=== PATIENT | female | born 1945 | race Caucasian/White ===

== ENCOUNTER → 2023-10-16 10:59 | Outpatient (REF) | payer MEDICARE, SELFPAY | LOC: RAD 10:59 | PROVIDERS: ATTENDING PHYSICIAN Internal Medicine | DX: M25.551 Pain in right hip (principal) | CPT/HCPCS: 73502; 73552 ==

== ENCOUNTER → 2024-06-04 13:10 | Outpatient (REF) | payer MEDICARE, SELFPAY ==
[2024-06-04 13:30] VITALS: BMI 26.1
[2024-06-04 14:23] LABS: Hematocrit 34.9 % (37.0-47.0); Hemoglobin 11.5 g/dL (12.0-16.0); Mean Corpuscular Hgb 29.3 pg (27.0-31.0); Mean Platelet Volume 10.7 fL (7.4-10.4); Platelet Count 203 10^3/uL (130-400); Red Blood Cell Count 3.92 10^6/uL (4.20-5.40); Red Cell Dist. Width 13.8 % (11.5-14.5); White Blood Cell Count 6.4 10^3/uL (4.8-10.8)
[2024-06-04 16:01] LABS: ALT (SGPT) 20 U/L (0-35); AST (SGOT) 27 U/L (14-36); Albumin 4.4 g/dl (3.5-5.0); Alkaline Phosphatase 49 U/L (38-126); Blood Urea Nitrogen 35 mg/dl (7-17); Calcium 9.8 mg/dl (8.4-10.2); Carbon Dioxide 26 mmol/L (22-30); Chloride 104 mmol/L (98-107); Estimated Creatinine Clearance 28 ml/min; Glucose 112 mg/dl (70-99); Potassium 4.7 mmol/L (3.5-5.1); Sodium 140 mmol/L (135-145); Total Bilirubin 1.3 mg/dl (0.2-1.3); Total Protein 6.9 g/dl (6.3-8.2)
--- NOTE | 2024-06-20 10:16 | PTCARENOTE ---
Maylin in Dr Landaverde's office made aware of Cr 1.6.
[2024-06-20 10:33] VITALS: BMI 26.1
[2024-06-23 08:33] VITALS: BMI 26.1
== END ==
LOC: REG 13:10
PROVIDERS: ATTENDING PHYSICIAN Orthopaedic Surgery; FAMILY PHYSICIAN Internal Medicine; REFERRING PHYSICIAN Internal Medicine Cardiovascular Disease
DX: M17.12 Unilateral primary osteoarthritis, left knee (principal); Z01.818 Encounter for other preprocedural examination
CPT/HCPCS: 36415; 80053; 83036; 85027; 86850; 86900; 86901; 87070

== ENCOUNTER 2024-07-21 13:05 | Outpatient (RCR) | payer MEDICARE, SELFPAY | END 2024-07-21 23:59 | disposition home or self-care (01) | LOC: RPT 13:05 | PROVIDERS: ATTENDING PHYSICIAN Orthopaedic Surgery; FAMILY PHYSICIAN Internal Medicine | DX: M17.12 Unilateral primary osteoarthritis, left knee (principal); Z73.6 Limitation of activities due to disability; M62.81 Muscle weakness (generalized) | CPT/HCPCS: 97110; 97162 ==

== ENCOUNTER 2024-08-06 11:52 | Outpatient (RCR) | payer MEDICARE, SELFPAY | END 2024-08-06 23:59 | disposition home or self-care (01) | LOC: RPT 11:52 | PROVIDERS: ATTENDING PHYSICIAN Orthopaedic Surgery; FAMILY PHYSICIAN Internal Medicine | DX: M17.12 Unilateral primary osteoarthritis, left knee (principal); Z73.6 Limitation of activities due to disability; M62.81 Muscle weakness (generalized); R26.89 Other abnormalities of gait and mobility | CPT/HCPCS: 97110; 97112 ==

== ENCOUNTER 2025-01-26 17:46 | Outpatient (RCR) | payer MEDICARE, SELFPAY | END 2025-01-26 23:59 | disposition home or self-care (01) | LOC: RPT 17:46 | PROVIDERS: ATTENDING PHYSICIAN Specialist; FAMILY PHYSICIAN Internal Medicine | DX: G20.A1 Parkinson's disease without dyskinesia, without mention of fluctuations (principal); Z73.6 Limitation of activities due to disability; R26.2 Difficulty in walking, not elsewhere classified; R26.89 Other abnormalities of gait and mobility | CPT/HCPCS: 97112; 97162 ==

== ENCOUNTER 2025-02-01 14:06 | Inpatient (IN) | payer MEDICARE, SELFPAY ==
[2025-02-01] VITALS (19 sets, daily range): BP systolic 107–159; BP diastolic 64–107
--- NOTE | 2025-02-01 09:34 | ED.GENMED ---
History of Present Illness
<Brenda Batista PA-C - Last Filed: 02/01/25 15:09>
General
Chief Complaint: Chest Pain
Source: patient
Exam Limitations: none
Time Seen by Provider: 02/01/25 09:16
Nursing documentation reviewed up to this point in time: agreed with
History of Present Illness
History of Present Illness:
pt is a 79 y/o Fwith h/o DVT/PE on eliquis, parkinsons, hld
here with episode of weakness and cp aroubd 830 while she was walking outside
pt and her had been walking as they do in [facility] and she suddenly said she didn't feel right, so she turned around with her walker and was on the way back to the car, she ended up suddenly feeling some chest discomfort and weak in her
legs where she 'couldn't move' and she leaned up against the car. some bystandards helped her into the car. pt never lost concsiousness and was awake but clammy.
she now feels better, denies chest pain, shortness of breath, confusion, weakness. pt takes her eliquis daily and hasn't missed any doses
sh has never had AFIB or anything wrong with her heart, she has seen [facility] previously for evalutaion for a chest pain that comes very sparingly and lasts minimal length of time
nothing ever turned up on her work up
pt started new med for depression 2 weeks ago by PCP, they don't know what it is
she sees neuro for her parkinsons
pt has had some fatigue; she has dark stool but not black
Past History
<Brenda Batista PA-C - Last Filed: 02/01/25 15:09>
Past History
ED Past Medical History: Hypercholesterolemia, Other (Osteoarthritis) and Other (DVT/PE after left knee arthroscopy April 2008.)
ED Past Surgical History: Appendectomy, Cholecystectomy and Orthopedic (Left knee arthroscopy 2007)
Social History
Tobacco: Non-smoker
Alcohol: Occasional (RARE)
Drug: None
Personal:
Living: with family
Employment: Employed
Family History
Family History: Other (Noncontributory)
Review of Systems
<JONNY Jensen Last Filed: 02/01/25 15:09>
Review of Systems
Allergies reviewed?: Yes
All Other Systems: Not applicable
Phy Exam
<JONNY Jensen Last Filed: 02/01/25 15:09>
Physical Exam
Physical Exam:
GENERAL: Alert , in no apparent distress
EYE: pupils equal and reactive
NECK: Supple
ENT: o/p clr, mmm.
CARDIAC: Irregularly irregular, mild tachycardia, no edema
LUNGS: Clear breath sounds bilaterally, no acute respiratory distress, no wheezes/rales/rhonchi
ABDOMEN: Soft, without focal tenderness, no r/g, no cvat, normal bowel sounds
NEUROLOGICAL: Alert and oriented, no focal neuro deficits, no focal deficits, cranial nerves intact, strength equal
SKIN: Warm and dry, skin intact.
MUSCULOSKELETAL: No edema, well perfused. neg ирина's sign
PSYCH: Normal and appropriate interaction.
Scores
<JONNY Jensen Last Filed: 02/01/25 15:09>
Heart Score for Chest Pain Patients
STEMI patient?: No
History: Moderately Suspicious
ECG: Nonspecific Repolarization
Age: >/= 65 years
Risk Factors: 1 or 2 Risk Factors
Troponin: </= Normal Limit
Heart Score for Chest Pain Patients: 5
Heart Score Risk: 20.3% MACE over next 6 weeks
Course
<JONNY Jensen Last Filed: 02/01/25 15:09>
Orders/Labs/Results
Orders:
Orders
02/01/25 08:58
EKG [Electrocardiogram (*1)] Urgent
Reason for Study: Chest Pain
EKG- Treatment ONCE
02/01/25 09:32
CR Chest - 2 Views Urgent
Comment:
Reason For Exam: near syncope
02/01/25 09:47
Complete Blood Count/With Diff Urgent
Comprehensive Metabolic Panel Urgent
Magnesium Urgent
Comment: ADD ON
NT-proBNP Urgent
Prothrombin Time Urgent
TSH Reflex To Free T4 Urgent
Comment: ADD ON
Troponin I Urgent
02/01/25 09:50
Add On- LAB Urgent
Tests Added?: magnesium
Add On- LAB Urgent
Tests Added?: tsh reflex t4
02/01/25 09:58
0.9% Sodium Chloride 500 ml [Nss] 500 ml IV BOLUS
02/01/25 10:38
CT Chest PE Study Urgent
Comment:
Reason For Exam: h/o pe, new onset afib
Diltiazem HCl [Cardizem] 5 mg IV NOW STA
02/01/25 11:19
Propofol [Diprivan] 20 ml .ROUTE .STK-MED
02/01/25 11:48
Electrocardiogram (*1) Urgent
Reason for Study: Chest Pain
EKG- Treatment ONCE
02/01/25 12:43
Electrocardiogram (*1) Urgent
Reason for Study: Chest Pain
02/01/25 13:15
Diltiazem Sustained Release [Cardizem Sr] 120 mg PO NOW STA
02/01/25 13:23
CARDIOLOGY CONSULT Routine
Consulting Provider: Mark Foster
Was physician already notified: Yes
02/01/25 13:50
Admit/Transfer Patient As Directed
Co-Sign Provider:
Level of Care: Inpatient admission
Assign to:: Telemetry
Physician / Group: Kaila/hospitalist
Diagnosis: weakness, new A fib
Reason for Telemetry: Arrhythmia
Date to Stop Telemetry: 02/04/25
Time to Stop Telemetry: 11:00
Reason for Hospitalization: weakness, new A fib
Expected length of stay greater than two midnights?: Yes
ELOS- Estimated Length of Stay in days: 3
I certify the patient meets the requirements for IP care: Yes
PRN Pain Medication Management As Directed
May give lesser potent ordered pain med per pt: Yes
preference::
Protocol:: Medication orders for pain may be administered in a
manner that supports deferring to patient preference
when the pt is:
- Requesting an ordered lesser potent pain medication.
Least to most potent pain medications are defined
as: acetaminophen < NSAID < tramadol < opioids
(morphine, oxycodone, hydromorphone).
- Requesting a lesser dose of the same medication IF
ORDERED.
- Requesting a less intrusive route of administration
if both routes are prescribed by the provider (PO <
IV).
02/01/25 13:51
Code Status As Directed
Resuscitation Status: Full Code
02/01/25 14:59
Acetaminophen [Tylenol] 650 mg PO Q4HPRN PRN
Bisacodyl [Dulcolax] 10 mg RECTAL [id number] PRN
Docusate W/Senna [Senokot-S] 1 tablet PO BIDPRN PRN
Ondansetron Injectable [Zofran] 4 mg IV Q6HPRN PRN
Polyethylene Glycol Powder [Miralax] 17 grams PO DAILYPRN PRN
02/01/25 14:59
Echo 2D MMode Color/Doppler Routine
Reason for Study: new A fib
Activity As Directed
Activity Level: As Tolerated
Vital Signs As Directed
Frequency: Per unit guidelines
Occupational Therapy Consult [Ot Eval And Treat] Routine
Pt Eval And Treat Routine
Activity Level: As Tolerated
02/01/25 Dinner
Cholesterol Lowering
At Your Request: Full Participation
Cholesterol Lowering: Sodium, 2 Gram
02/01/25 20:00
Apixaban [Eliquis] 5 mg PO BID
02/01/25 21:00
Troponin I Routine
02/01/25 22:00
Atorvastatin [Lipitor] 20 mg PO HS
02/02/25 06:00
Basic Metabolic Panel IN AM
Complete Blood Count/No Diff IN AM
Magnesium IN AM
Troponin I IN AM
02/02/25 08:00
omeprazole 40 mg PO DAILY
02/03/25 06:00
Basic Metabolic Panel IN AM
Complete Blood Count/No Diff IN AM
02/04/25 06:00
Basic Metabolic Panel IN AM
Complete Blood Count/No Diff IN AM
02/04/25 11:00
DC Protocol for Telemetry ONCE
02/05/25 06:00
Basic Metabolic Panel IN AM
Complete Blood Count/No Diff IN AM
02/06/25 06:00
Basic Metabolic Panel IN AM
Complete Blood Count/No Diff IN AM
02/07/25 06:00
Basic Metabolic Panel IN AM
Complete Blood Count/No Diff IN AM
02/08/25 06:00
Basic Metabolic Panel IN AM
Complete Blood Count/No Diff IN AM
02/09/25 06:00
Basic Metabolic Panel IN AM
Complete Blood Count/No Diff IN AM
Abnormal Lab Results
02/01/25
09:47
RBC 3.81 L 10^6/uL
(4.20-5.40)
Hgb 11.6 L g/dL
(12.0-16.0)
Hct 34.6 L %
(37.0-47.0)
PT 18.2 H Sec
(11.4-14.6)
BUN 26 H mg/dl
(7-17)
Creatinine 1.6 H mg/dL
(0.6-1.0)
Glucose 190 H mg/dl
(70-99)
Total Bilirubin 1.5 H mg/dl
(0.2-1.3)
02/01/25 09:47
02/01/25 09:47
Vital Signs
Initial and Last Documented VS:
Initial Vital Signs
Temp Pulse Resp BP Pulse Ox
36.8 C 105 16 123/74 99
02/01/25 09:02 02/01/25 09:02 02/01/25 09:02 02/01/25 09:02 02/01/25 09:02
Last Documented Vital Signs
Temp Pulse Resp BP Pulse Ox
36.8 C 75 14 149/69 98
02/01/25 09:02 02/01/25 13:45 02/01/25 13:45 02/01/25 13:12 02/01/25 13:15
<Butch Stewart MD - Last Filed: 02/01/25 10:44>
Orders/Labs/Results
Orders:
Orders
02/01/25 08:58
EKG [Electrocardiogram (*1)] Urgent
Reason for Study: Chest Pain
EKG- Treatment ONCE
02/01/25 09:32
CR Chest - 2 Views Urgent
Comment:
Reason For Exam: near syncope
02/01/25 09:47
Complete Blood Count/With Diff Urgent
Comprehensive Metabolic Panel Urgent
Magnesium Urgent
Comment: ADD ON
NT-proBNP Urgent
Prothrombin Time Urgent
TSH Reflex To Free T4 Urgent
Comment: ADD ON
Troponin I Urgent
02/01/25 09:50
Add On- LAB Urgent
Tests Added?: magnesium
Add On- LAB Urgent
Tests Added?: tsh reflex t4
02/01/25 09:58
0.9% Sodium Chloride 500 ml [Nss] 500 ml IV BOLUS
02/01/25 10:38
CT Chest PE Study Urgent
Comment:
Reason For Exam: h/o pe, new onset afib
Diltiazem HCl [Cardizem] 5 mg IV NOW STA
02/01/25 11:19
Propofol [Diprivan] 20 ml .ROUTE .STK-MED
02/01/25 11:48
Electrocardiogram (*1) Urgent
Reason for Study: Chest Pain
EKG- Treatment ONCE
02/01/25 12:43
Electrocardiogram (*1) Urgent
Reason for Study: Chest Pain
02/01/25 13:15
Diltiazem Sustained Release [Cardizem Sr] 120 mg PO NOW STA
02/01/25 13:23
CARDIOLOGY CONSULT Routine
Consulting Provider: Mark Foster
Was physician already notified: Yes
02/01/25 13:50
Admit/Transfer Patient As Directed
Co-Sign Provider:
Level of Care: Inpatient admission
Assign to:: Telemetry
Physician / Group: Kaila/hospitalist
Diagnosis: weakness, new A fib
Reason for Telemetry: Arrhythmia
Date to Stop Telemetry: 02/04/25
Time to Stop Telemetry: 11:00
Reason for Hospitalization: weakness, new A fib
Expected length of stay greater than two midnights?: Yes
ELOS- Estimated Length of Stay in days: 3
I certify the patient meets the requirements for IP care: Yes
PRN Pain Medication Management As Directed
May give lesser potent ordered pain med per pt: Yes
preference::
Protocol:: Medication orders for pain may be administered in a
manner that supports deferring to patient preference
when the pt is:
- Requesting an ordered lesser potent pain medication.
Least to most potent pain medications are defined
as: acetaminophen < NSAID < tramadol < opioids
(morphine, oxycodone, hydromorphone).
- Requesting a lesser dose of the same medication IF
ORDERED.
- Requesting a less intrusive route of administration
if both routes are prescribed by the provider (PO <
IV).
02/01/25 13:51
Code Status As Directed
Resuscitation Status: Full Code
02/01/25 14:59
Acetaminophen [Tylenol] 650 mg PO Q4HPRN PRN
Bisacodyl [Dulcolax] 10 mg RECTAL [id number] PRN
Docusate W/Senna [Senokot-S] 1 tablet PO BIDPRN PRN
Ondansetron Injectable [Zofran] 4 mg IV Q6HPRN PRN
Polyethylene Glycol Powder [Miralax] 17 grams PO DAILYPRN PRN
02/01/25 14:59
Echo 2D MMode Color/Doppler Routine
Reason for Study: new A fib
Activity As Directed
Activity Level: As Tolerated
Vital Signs As Directed
Frequency: Per unit guidelines
Occupational Therapy Consult [Ot Eval And Treat] Routine
Pt Eval And Treat Routine
Activity Level: As Tolerated
02/01/25 Dinner
Cholesterol Lowering
At Your Request: Full Participation
Cholesterol Lowering: Sodium, 2 Gram
02/01/25 20:00
Apixaban [Eliquis] 5 mg PO BID
02/01/25 21:00
Troponin I Routine
02/01/25 22:00
Atorvastatin [Lipitor] 20 mg PO HS
02/02/25 06:00
Basic Metabolic Panel IN AM
Complete Blood Count/No Diff IN AM
Magnesium IN AM
Troponin I IN AM
02/02/25 08:00
omeprazole 40 mg PO DAILY
02/03/25 06:00
Basic Metabolic Panel IN AM
Complete Blood Count/No Diff IN AM
02/04/25 06:00
Basic Metabolic Panel IN AM
Complete Blood Count/No Diff IN AM
02/04/25 11:00
DC Protocol for Telemetry ONCE
02/05/25 06:00
Basic Metabolic Panel IN AM
Complete Blood Count/No Diff IN AM
02/06/25 06:00
Basic Metabolic Panel IN AM
Complete Blood Count/No Diff IN AM
02/07/25 06:00
Basic Metabolic Panel IN AM
Complete Blood Count/No Diff IN AM
02/08/25 06:00
Basic Metabolic Panel IN AM
Complete Blood Count/No Diff IN AM
02/09/25 06:00
Basic Metabolic Panel IN AM
Complete Blood Count/No Diff IN AM
Abnormal Lab Results
02/01/25
09:47
RBC 3.81 L 10^6/uL
(4.20-5.40)
Hgb 11.6 L g/dL
(12.0-16.0)
Hct 34.6 L %
(37.0-47.0)
PT 18.2 H Sec
(11.4-14.6)
BUN 26 H mg/dl
(7-17)
Creatinine 1.6 H mg/dL
(0.6-1.0)
Glucose 190 H mg/dl
(70-99)
Total Bilirubin 1.5 H mg/dl
(0.2-1.3)
02/01/25 09:47
02/01/25 09:47
Vital Signs
Initial and Last Documented VS:
Initial Vital Signs
Temp Pulse Resp BP Pulse Ox
36.8 C 105 16 123/74 99
02/01/25 09:02 02/01/25 09:02 02/01/25 09:02 02/01/25 09:02 02/01/25 09:02
Last Documented Vital Signs
Temp Pulse Resp BP Pulse Ox
36.8 C 75 14 149/69 98
02/01/25 09:02 02/01/25 13:45 02/01/25 13:45 02/01/25 13:12 02/01/25 13:15
<Brenda Batista PA-C - Last Filed: 02/01/25 15:09>
MDM/Problems Addressed
Differential Diagnosis Includes:
new onset afib, less likely PE (already anticoagulated), ACS, near syncope
MDM/Problems Addressed:
room 38
nicki pancoast
[facility] patient, no CAD;
new parkinsons 3 mo ago
near syncope today while walking, legs felt weak with chest pain; she felt stuck like her legs wouldn't move; she had no LOC
presented in rapid afib, new for her
h/o PE on eliquis for years
ct pe neg, stable bp, converted to NSR after 5 mg IV cardizem
but she is weak standing, probably parkinsons related
needs trop trending for her cp (1st neg), and i ordered oral dilt for her
spoke with dr. parikh from [facility] who agreed
felt pt could attempt going home, but she failed road test, tried walking and was not able to walk like usual, felt her legs stiff and give out; probably parkinsons related but given the new afib, will also admit for tele monitoring, trop trending
and PT consult
<Brenda Batista PA-C - Last Filed: 02/01/25 15:09>
*Critical Care Note
Total Time (30-74mins, 75-104mins- exclusive of procedures): Not Applicable
ED Attending Note
<Brenda Batista PA-C - Last Filed: 02/01/25 15:09>
-
Portions of this chart may have been created with voice recognition software.� Occasional wrong word or��sound alike� substitutions may have occurred due to the inherent limitations of voice recognition software.
<Butch Stewart MD - Last Filed: 02/01/25 10:44>
ED Attending Note
Patient seen and examined by attending physician: Yes
I performed the substantive portion of visit, reviewed & personally made and approve the management plan that is documented in note by myself or TIERRA.: Yes
ED Attending Note:
7-year-old female took a walk with her . Sudden onset of lightheadedness some shortness of breath fatigue and chest pain. Feels better at this time. Did not feel an irregular heartbeat. Did have a similar episode a few weeks ago. Mostly
more of a lightheaded feeling.
On exam patient is nontoxic in no distress. Warm and dry. Perfusing well. Speech is normal. Grossly nonfocal. Lungs are clear and equal. Heart irregular irregular and mildly tachycardic. No murmur. She is warm and dry and nontoxic.
Impression A-fib with minimal RVR. With her significant history of PE even though she is on Eliquis we will do a repeat CT scan. Also cardiac testing with the chest pain. If all stable would consider cardioversion versus observation. Very
low-dose of Cardizem at this time.
Discharge Plan
Departure
Patient Disposition: Admit
Date of Disposition: 02/01/25
Time of Disposition: 13:10
Admit to: Telemetry
Presentation/result/management discussed w/ accepting MD/DO: Hospitalist
Condition: Fair
Covid-19: Not Applicable
Discharge Problem:
Chest pain, Atrial fibrillation, new onset, Ambulatory dysfunction
Interventions
Interventions:
*Risk Screen - Suicide Last Done: 02/01/25 09:02
*General Assessment Last Done: 02/01/25 09:46
*Neglect/Abuse Screening Last Done: 02/01/25 09:02
*ED COVID-19 Vaccine History Last Done: 02/01/25 09:46
ED- Cardiac Assessment Last Done: 02/01/25 09:46
[2025-02-01 09:59] LABS: % Basophils 0.6 % (0-2); % Eosinophils 1.9 % (0-6); % Immature Granulocytes 0.2 % (0-0.5); % Lymphocytes 29.6 % (20.5-51.1); % Monocytes 4.3 % (1.7-9.3); % Neutrophils 63.4 % (42.2-75.2); Absolute Eosinophils 0.1 10^3/uL (0-0.7); Absolute Lymphocytes 1.9 10^3/uL (1.2-3.4); Absolute Monocytes 0.3 10^3/uL (0.1-0.6); Hematocrit 34.6 % (37.0-47.0); Hemoglobin 11.6 g/dL (12.0-16.0); Mean Corp Hgb Conc. 33.5 g/dL (33.0-37.0); Mean Corpuscular Hgb 30.4 pg (27.0-31.0); Mean Corpuscular Volume 90.8 fL (81.0-99.0); Mean Platelet Volume 10.2 fL (7.4-10.4); Nucleated Red Blood Cells % 0 %; Platelet Count 173 10^3/uL (130-400); Red Blood Cell Count 3.81 10^6/uL (4.20-5.40); White Blood Cell Count 6.3 10^3/uL (4.8-10.8)
[2025-02-01 10:09] LABS: INR 1.49; PT 18.2 Sec (11.4-14.6)
[2025-02-01 10:15] LABS: ALT (SGPT) < 10 U/L (0-35); AST (SGOT) 19 U/L (14-36); Albumin 4.1 g/dl (3.5-5.0); Alkaline Phosphatase 42 U/L (38-126); Blood Urea Nitrogen 26 mg/dl (7-17); Calcium 9.4 mg/dl (8.4-10.2); Carbon Dioxide 27 mmol/L (22-30); Chloride 106 mmol/L (98-107); Glucose 190 mg/dl (70-99); Magnesium 2.3 mg/dl (1.6-2.3); Potassium 4.3 mmol/L (3.5-5.1); Sodium 140 mmol/L (135-145); Total Bilirubin 1.5 mg/dl (0.2-1.3); Total Protein 6.7 g/dl (6.3-8.2)
[2025-02-01] MEDS: NSS 500 IV (10:25)
[2025-02-01 10:28] LABS: NT-proBNP 313 pg/ml; Troponin I < 0.012 ng/ml
[2025-02-01] MEDS: CARDIZEM 5 MG IV (11:00)
[2025-02-01 12:01] LABS: TSH Reflex To Free T4 2.26 uIU/ml (0.47-4.68)
--- NOTE | 2025-02-01 13:24 | HPS.HSE ---
Family Physician
-
Family Physician: Dorcas Sheldon
Chief Complaint
-
leg weakness
resolved chest pain
History of Present Illness
HPI: 79 y/o F with PMH DVT/PE on Eliquis, Parkinson's, HLD, CKD stage 3, p/w leg weakness and CP that started in the morning.
She was taking a walk outside with her when she suddenly didn't feel chest discomfort and weakness in her legs. She could not move and was helped by bystanders into the car.
In the ED, she felt better and her chest discomfort resolved. She was noted to be in new onset A fib and was given Cardizem 5 mg IV which spontaneously converted her back to NSR.
Medical History
Past Medical History
Past Medical History: Reports Hypercholesterolemia and Other (hx post-op DVT 2007)
Additional Past Medical History:
Parkinson's disease
Past Surgical History: Reports Appendectomy, Cholecystectomy and Orthopedic (right total hip replacement 05/29/[address] Rivas)
Social History
Tobacco: Non-smoker
Alcohol: None
Drug: None
Personal:
Living: With Family ()
Family History
Family History: Not pertinent
Allergies / Home Medications
Allergies reflects when Allergies were last updated in [facility].
Home Medications with original date entered in [facility]
Allergy/Medication List:
Medications on admission are unable to be verified or confirmed at this time.
Review of Systems
-
Cardiac: Denies Chest Pain
Neurological: Reports Weakness (leg weakness)
Physical Exam
Vital Signs
Vital Signs
Temp Pulse Resp BP Pulse Ox
36.8 C 70 17 159/64 98
02/01/25 09:02 02/01/25 13:14 02/01/25 13:14 02/01/25 12:05 02/01/25 13:14
Physical Exam
General: Well Developed, Well Nourished, No Apparent Distress, Comfortable and Conversant (slow speech)
HEENT: NormoCephalic, Moist mucous membranes and Atraumatic
Respiratory: Clear and Non Labored Respirations; No Accessory Resp Muscle Use
Cardiac: S1/S2 and Regular Rhythm; No Murmur or Rub
GI: Soft, Non Tender, Non Distended and Normal Bowel Sounds; No Organomegaly
Rectal: Deferred by Provider
Musculoskeletal: No Clubbing, No Cyanosis and No Edema
Skin: Warm and Dry
Neuro: Awake and Alert
Psych: Calm and Intact Judgment/Insight
Laboratory Results
-
02/01/25 09:47
02/01/25 09:47
Laboratory Results
PT 18.2 Sec (11.4-14.6) H 02/01/25 09:47
INR 1.49 02/01/25 09:47
Total Bilirubin 1.5 mg/dl (0.2-1.3) H 02/01/25 09:47
AST 19 U/L (14-36) 02/01/25 09:47
ALT < 10 U/L (0-35) 02/01/25 09:47
Alkaline Phosphatase 42 U/L (38-126) 02/01/25 09:47
Troponin I Cancelled 02/01/25 12:43
Data Reviewed
-
Lab Data: Labs Reviewed by me
Impression/Plan
-
HPI: 79 y/o F with PMH DVT/PE on Eliquis, Parkinson's, HLD, CKD stage 3, p/w leg weakness and CP that started in the morning.
She was taking a walk outside with her when she suddenly didn't feel chest discomfort and weakness in her legs. She could not move and was helped by bystanders into the car.
In the ED, she felt better and her chest discomfort resolved. She was noted to be in new onset A fib and was given Cardizem 5 mg IV which spontaneously converted her back to NSR.
A/P:
# BL leg weakness, near syncope, likely related to Parkinson's
PT OT eval
# new onset A fib
spontaneously converted to NSR after IV Cardizem
check echo
Card CS
# Resolved chest pain/discomfort
Trop neg on admission, trend trop
EKG unrevealing
# h/o DVT/PE on Eliquis
# Parkinson's disease
# HLD
Cont Lipitor
# CKD stage 3
DVT ppx: [employer] Eliquis
FC
[2025-02-01] MEDS: CARDIZEM SR 120 MG PO (13:53)
[2025-02-01] MEDS: ELIQUIS 5 MG PO (21:22)
[2025-02-01] MEDS: LIPITOR 20 MG PO (21:23)
[2025-02-01] MEDS: SINEMET 25-100 1 TABLET PO (21:23)
[2025-02-01 22:20] LABS: Troponin I 0.018 ng/ml
[2025-02-02] VITALS (8 sets, daily range): BP systolic 139–162; BP diastolic 72–89; PULSE 69–73; O2SAT 96
[2025-02-02 06:51] LABS: Hemoglobin 11.6 g/dL (12.0-16.0); Mean Corp Hgb Conc. 33.1 g/dL (33.0-37.0); Mean Corpuscular Hgb 30.1 pg (27.0-31.0); Mean Corpuscular Volume 90.7 fL (81.0-99.0); Mean Platelet Volume 10.5 fL (7.4-10.4); Platelet Count 187 10^3/uL (130-400); Red Blood Cell Count 3.86 10^6/uL (4.20-5.40); Red Cell Dist. Width 14.1 % (11.5-14.5); White Blood Cell Count 7.5 10^3/uL (4.8-10.8)
[2025-02-02 07:04] LABS: Troponin I 0.012 ng/ml
[2025-02-02] MEDS: PROTONIX 40 MG PO (07:26)
[2025-02-02] MEDS: LEXAPRO 10 MG PO (07:27)
[2025-02-02] MEDS: ELIQUIS 5 MG PO ×2 (07:27→20:18)
[2025-02-02] MEDS: SINEMET 25-100 1 TABLET PO ×4 (07:31→21:15)
--- NOTE | 2025-02-02 07:55 | CON.CAR ---
Addendum entered and electronically signed by Alex Tamayo MD 02/02/25 17:15:
79-year-old woman admitted February 01 with weakness, chest tightness and found to be in atrial fibrillation with rapid ventricular response, spontaneously converted to sinus rhythm after IV diltiazem. proBNP 313, TSH normal, undetectable troponin. In
retrospect patient has been having increasing episodes similar to this, 3 or 4 in the last month, and was severely symptomatic with current episode
PMH/PSH: CKD stage IIIb, depression, DVT and PE, Parkinson's disease, appendectomy, cholecystectomy, right total hip, arthroscopic procedures
Outpatient meds: Per summary screen, Not on beta-rigo or diltiazem
Current meds: Apixaban 5 mg twice daily, atorvastatin 20 mg daily, pantoprazole 40 mg a day, Sinemet, Lexapro
Rest of history per Wanda Ching
162/78, sometimes normotensive, pulse 66, respiratory rate 16, afebrile,, weight is 69.6 kg, mildly parkinsonian, able to ambulate with a walker, head neck exam unremarkable, lungs are clear, very soft systolic murmur at base, JVD okay, extremities
without clubbing cyanosis or edema distal pulses intact
ECG atrial flutter with variable AV conduction
ECG #2 sinus rhythm, normal ECG
CT chest, negative for pulmonary embolism
Echo: Small dynamic ventricle, possible mid cavity gradient, Valsalva not performed, mild aortic stenosis, peak/mean gradient 23/11 mmHg, valve area 1.5 cm 2
Hemoglobin 11.6, BUN and creatinine are 22 and 1.4, potassium is 4.4, magnesium is 2.4
Impression:
As documented by Wanda Ching below. Reviewed in detail and agree unless otherwise outlined in plan.
Plan:
She presents with paroxysmal atrial flutter and has been increasingly symptomatic. Her echo is somewhat suggestive of a hypertrophic phenotype with hyperdynamic function and possible LVOT gradient, though Valsalva was not performed during echo.
Under this circumstance, she is likely to become severely symptomatic with recurrent atrial fibrillation, and I doubt we can control her heart rate with low dose beta-blockade given that she has a resting bradycardia.
She is also mildly orthostatic.
Discussed with patient, will add amiodarone 200 mg twice daily. Will de-escalate to 200 mg once daily in a month, sooner if bradycardic. Stop metoprolol.
Creatinine has dropped to 1.4, so although she remains borderline apixaban should remain 5 mg twice daily.
Troponin was undetectable, for her chest discomfort we could consider an outpatient ischemic evaluation but this may not be required.
If stable, would not object to discharge in the morning.
Original Note:
Consultation
Consultation Request
Date/Time Consultation Requested: 02/01/2025
Date/Time Consultation Performed: 02/02/2025
Requesting Provider: Dr. Bright
Performing Provider: Wanda Ching PA-C for Dr. Alex Tamayo
Reason for Consultation: Atrial fibrillation
Medical History
-
History of Present Illness:
Patient is an 79-year-old female with past medical history significant for recent diagnosis of Parkinson's disease (October 2024), hyperlipidemia, history of PE/DVT on chronic anticoagulation with Eliquis, CKD stage IIIb and depression who presents to
emergency department 02/01/2025 with weakness and chest tightness. Patient reports she and her were taking a walk when she developed sudden generalized weakness as well as weakness in her legs and chest tightness. reports her legs
gave out and he caught her then brought her to emergency department. On arrival she was found to be in atrial fibrillation with accelerated ventricular response with heart rate of 117 bpm. She was provided 5 mg IV diltiazem with spontaneous
conversion to sinus rhythm. Per review of telemetry she is remained in sinus rhythm. Chest x-ray showed no acute cardiopulmonary abnormalities. CT of chest was negative for PE with small bilateral pulmonary nodules. Troponin x 3 was
undetectable. proBNP 313. TSH 2.26. Baseline creatinine 1.6.
At time of this evaluation patient resting comfortably in bed, reports she is feeling well. She currently denies chest pain, shortness of breath, dizziness or lightheadedness, palpitations or weakness.
Past medical history:
Tricuspid regurgitation
Parkinson's disease
Hyperlipidemia
History of PE/DVT
Chronic anticoagulation on Eliquis
CKD stage IIIb
Depression
Past Medical History
Past Medical History: Other (See HPI)
Past Surgical History: Appendectomy, Cholecystectomy, Orthopedic (Bunionectomy, left shoulder arthroscopic surgery, left knee arthroscopic surgery, right hip replacement May 2022) and Other (Bilateral cataract extraction, dental implant)
Social History
Tobacco: Non-Smoker
Alcohol: None
Drug: None
Personal:
Living: With Family
Family History
Family History: Other (Father COPD, mother hypertension)
Allergies / Home Medications
Allergy/AdvReac Type Severity Reaction Status Date / Time
Shellfish *RETIRED-05/14/12 Allergy Unknown Verified 02/01/25 09:02
(Shellfish)
Sulfa (Sulfonamide Allergy Unknown Verified 02/01/25 09:02
Antibiotics)
sulfamethoxazole Allergy Unknown Verified 02/01/25 09:02
trimethoprim Allergy Unknown Verified 02/01/25 09:02
�Medication �Instructions �Recorded �Confirmed �Type
calcium 500 mg-vitamin D3 1,000 1 ea PO DAILY Supplement 06/09/20 06/20/24 History
unit-vitamin K 40 mcg chewable
tablet
coenzyme Q10 10 mg capsule (Co 1 tab PO QPM Supplement 06/09/20 06/20/24 History
Q-10)
atorvastatin 20 mg tablet 20 mg PO HS High cholesterol 06/05/22 06/20/24 History
omega-3 fatty acids 1,000 mg PO DAILY High cholesterol 06/06/22 06/20/24 History
acetaminophen 500 mg tablet (Pain 1,000 mg (2 x 500 mg) PO Q6H #0 06/09/22 02/01/25 Rx
Reliever Extra Strength tabs
(acetaminophen))
apixaban 5 mg tablet (Eliquis) 5 mg PO BID #0 tabs 06/09/22 06/20/24 Rx
multivitamin with folic acid 400 1 tab PO DAILY Supplement 06/09/22 06/20/24 History
mcg tablet (Tab-A-Michelle)
ibandronate 150 mg tablet 150 mg PO QMONTH 06/20/24 06/20/24 History
mupirocin 2 % topical ointment 1 applic topical BID pre op 06/20/24 06/20/24 History
omeprazole 40 mg capsule,delayed 40 mg PO DAILY 06/20/24 06/20/24 History
release
carbidopa 25 mg-levodopa 100 mg 1 tab PO QID 02/01/25 02/01/25 History
tablet
escitalopram oxalate 10 mg tablet 10 mg PO DAILY 02/01/25 02/01/25 History
Review of Systems
-
History Source: Patient
All other systems: Negative unless noted
Physical Exam
Vital Signs
Temp Pulse Resp BP Pulse Ox
98.4 F 66 16 162/78 98
02/02/25 07:26 02/02/25 07:26 02/02/25 07:26 02/02/25 07:26 02/02/25 07:26
GEN: No distress, awake, Ox3, resting comfortably in bed
HEENT: supple, anicteric, mmm
LUNGS: CTA bilaterally, no wheezes/rales
CV: Reg, S1/S2, 2/6 LSB murmur, no rub or gallop
ABD: soft, BS+, NT/ND
EXT: No edema, clubbing or cyanosis
NEURO: Gross non-focal
SKIN: No rash, warm, dry, pink
Lab Results
02/02/25 06:20
Troponin I 0.012 ng/ml 02/02/25 06:20
Bdc-H-Dnhfvbqswee Pept 313 pg/ml 02/01/25 09:47
Impression / Plan
-
PCP: Dorcas Sheldon
Trial Paralegal: Sony Buckley
Impression:
Presented 02/01/2025 with generalized weakness, leg weakness and chest tightness
New diagnosis of atrial fibrillation with rapid ventricular response
Tricuspid regurgitation
Parkinson's disease
Hyperlipidemia
History of PE/DVT
Chronic anticoagulation on Eliquis
CKD stage IIIb
Depression
Echo 02/02/2025: ordered
Echo 09/19/2023: EF 58%, moderate TR. PAP 31 mmhg
Plan:
-Presented 02/01/2025 with generalized weakness, leg weakness and chest tightness
-New diagnosis of atrial fibrillation with rapid ventricular response, spontaneously converted to sinus rhythm after IV diltiazem in ED.
-Per review of telemetry patient remains in sinus rhythm
-Consider adding AV ashley blocking agent given new diagnosis of atrial fibrillation. Of note patient did have sinus bradycardia overnight on telemetry.
-Continue anticoagulation with Eliquis. Of note patient anticoagulated on Eliquis for history of recurrent DVT/PE. Given patient now age 79 and creatinine of 1.6 may need to consider reduction of dose to 2.5 mg twice a day
-Check echocardiogram. Patient has history of moderate TR.
-TSH 2.26
-Chest tightness with negative troponin x 3. EKG in sinus rhythm without ischemic changes. CT of chest negative for PE. No additional chest tightness with conversion to sinus rhythm
Will arrange for outpatient cardiology follow-up
Data Reviewed
-
EKG: Report Reviewed by me, Discussed with Physician, Discussed with Patient and Discussed with Family
Radiology: Report Reviewed by me, Discussed with Physician, Discussed with Patient and Discussed with Family
CT Scan: Report Reviewed by me, Discussed with Physician, Discussed with Patient and Discussed with Family
Labs: Labs Reviewed by me, Discussed with Physician, Discussed with Patient and Discussed with Family
Old Records: Reviewed
[2025-02-02 08:26] LABS: Blood Urea Nitrogen 22 mg/dl (7-17); Calcium 9.2 mg/dl (8.4-10.2); Carbon Dioxide 25 mmol/L (22-30); Chloride 109 mmol/L (98-107); Glucose 107 mg/dl (70-99); Magnesium 2.4 mg/dl (1.6-2.3); Potassium 4.4 mmol/L (3.5-5.1); Sodium 140 mmol/L (135-145); eGFR 38.03
--- NOTE | 2025-02-02 09:34 | W.PN.HOSP.TC ---
Today's Communication/Plan
-
see A/P
Assessment / Plan
Assessment / Plan
HPI: 79 y/o F with PMH DVT/PE on Eliquis, Parkinson's, HLD, CKD stage 3, p/w leg weakness and CP that started in the morning.
She was taking a walk outside with her when she suddenly didn't feel chest discomfort and weakness in her legs. She could not move and was helped by bystanders into the car.
In the ED, she felt better and her chest discomfort resolved. She was noted to be in new onset A fib and was given Cardizem 5 mg IV which spontaneously converted her back to NSR.
A/P:
# BL leg weakness, near syncope, likely related to Parkinson's
PT OT eval
# new onset A fib
spontaneously converted to NSR after IV Cardizem
check echo
Card CS
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
# Resolved chest pain/discomfort
Trop neg
EKG unrevealing
# h/o DVT/PE on Eliquis
Per pt, she has had 2 separate events of DVTs in LE, hence was informed to cont Eliquis life long
# Parkinson's disease
# HLD
Cont Lipitor
# CKD stage 3
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
FC
called to update, calls not answered
Anticipated Discharge: 24 - 48 hours
Subjective/Interval History
-
Date of Service: February 02, 2025
Objective Data
-
Labs:
Laboratory Results
02/02/25
06:20
WBC 7.5
Hgb 11.6 L
Hct 35.0 L
Plt Count 187
Sodium 140
Potassium 4.4
Chloride 109 H
Carbon Dioxide 25
BUN 22 H
Creatinine 1.4 H
Glucose 107 H
Calcium 9.2
Vital Signs:
Vital Signs
Temp Pulse Resp BP Pulse Ox
36.9 C 66 16 162/78 98
02/02/25 07:26 02/02/25 07:26 02/02/25 07:26 02/02/25 07:26 02/02/25 07:30
I&O
02/01/25 02/02/25 02/03/25
06:59 06:59 06:59
Intake Total 240 / 240
Balance 240 / 240
Review of Systems
-
History Source: Patient
All other systems: Reviewed and negative
Physical Exam
-
General: Well Developed, Well Nourished, No Apparent Distress, Comfortable and Conversant (soft and slow speech)
HEENT: Normocephalic and Atraumatic
Respiratory: Clear to Auscultation and Non Labored Respirations; Negative Wheezes, Rhonchi or Accessory Resp Muscle Use
Cardiac: Regular Rhythm and S1/S2; Negative Murmur
GI: Soft, Nontender, Nondistended and Normal Bowel Sounds
Musculoskeletal: No Clubbing, No Cyanosis and No Edema
Neuro: Awake and Alert
Psych: Calm and Intact Judgement/Insight
Data Reviewed
-
Labs: Labs Reviewed by me
--- NOTE | 2025-02-02 10:38 | CM ---
Addendum entered by Elham Castillo 02/02/25 11:42:
PT rec HH
Patient and family prefer [facility]
Referral entered in [facility]
Original Note:
Patient seen at bedside.
IA completed
Dx: weakness, new afib
Patient lives with in a 1 story home, 3 steps to enter
PLOF: Independent with cane/walker outside home
DME: Cane, Walker, wheelchair, shower chair
Denies insecurities
Has had [facility] in past, has had [facility] in past
PT/OT to eval
PCP: Dorcas Sheldon
Pharmacy: [address], [place]
Plan: Await PT/OT ALIX langley to follow hospital progress for needs
[2025-02-02] MEDS: PACERONE 200 MG PO ×2 (12:35→20:18)
[2025-02-02] MEDS: LIPITOR 20 MG PO (21:15)
[2025-02-03 03:17] VITALS: BP 165/80
[2025-02-03 07:25] VITALS: BP 172/77
[2025-02-03 08:31] LABS: Blood Urea Nitrogen 24 mg/dl (7-17); Calcium 8.9 mg/dl (8.4-10.2); Carbon Dioxide 25 mmol/L (22-30); Chloride 107 mmol/L (98-107); Estimated Creatinine Clearance 32 ml/min; Glucose 104 mg/dl (70-99); Potassium 4.6 mmol/L (3.5-5.1); Sodium 139 mmol/L (135-145); eGFR 38.03
[2025-02-03 09:00] VITALS: BP 150/80
[2025-02-03] MEDS: SINEMET 25-100 1 TABLET PO ×2 (09:18→12:05)
[2025-02-03] MEDS: ELIQUIS 5 MG PO (09:18)
[2025-02-03] MEDS: PROTONIX 40 MG PO (09:18)
[2025-02-03] MEDS: PACERONE 200 MG PO (09:18)
[2025-02-03] MEDS: LEXAPRO 10 MG PO (09:19)
--- NOTE | 2025-02-03 10:21 | CM ---
Patient seen at bedside with
PT rec HH
referral in [facility] for [facility]
has had [facility] in past & prefers
PLAN: home with [facility] when stable
[facility] fax #: [phone]
--- NOTE | 2025-02-03 10:29 | W.PN.HOSP.TC ---
Addendum entered and electronically signed by Nayla Bright MD 02/03/25 13:32:
total DC time 40 min
Original Note:
Today's Communication/Plan
-
see AP
Assessment / Plan
Assessment / Plan
HPI: 79 y/o F with PMH DVT/PE on Eliquis, Parkinson's, HLD, CKD stage 3, p/w leg weakness and CP that started in the morning.
She was taking a walk outside with her when she suddenly didn't feel chest discomfort and weakness in her legs. She could not move and was helped by bystanders into the car.
In the ED, she felt better and her chest discomfort resolved. She was noted to be in new onset A fib and was given Cardizem 5 mg IV which spontaneously converted her back to NSR.
A/P:
# BL leg weakness, near syncope, likely related to Parkinson's
PT OT recc HH
# new onset A fib
spontaneously converted to NSR after IV Cardizem
echo largely unrevealing: EF 75-80%. Mild aortic stenosis, peak/mean gradient 23/11 mmHg, aortic valve area 1.5cm2. No aortic regurgitation
Appreciate Card input
Started amiodarone 200 mg twice daily, plan to de-escalate to 200 mg once daily in a month
Stopped metoprolol
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
# Resolved chest pain/discomfort
Trop neg , EKG unrevealing
could consider an outpatient ischemic evaluation per card
# h/o DVT/PE on Eliquis
Per pt, she has had 2 separate events of DVTs in LE, hence was informed to cont Eliquis life long
# Parkinson's disease
# HLD
Cont Lipitor
# CKD stage 3
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
FC
Dispo: HH
DW and HERNANDEZ at bedside
Anticipated Discharge: Today
Subjective/Interval History
-
Date of Service: February 03, 2025
Objective Data
-
Labs:
Laboratory Results
02/03/25
07:06
Sodium 139
Potassium 4.6
Chloride 107
Carbon Dioxide 25
BUN 24 H
Creatinine 1.4 H
Glucose 104 H
Calcium 8.9
Vital Signs:
Vital Signs
Temp Pulse Resp BP Pulse Ox
37.3 C 63 12 150/80 99
02/03/25 07:25 02/03/25 09:18 02/03/25 07:25 02/03/25 09:18 02/03/25 07:25
I&O
02/02/25 02/03/25 02/04/25
06:59 06:59 06:59
Intake Total 240 / 240 450 / 450 300 / 300
Balance 240 / 240 450 / 450 300 / 300
Review of Systems
-
History Source: Patient
All other systems: Reviewed and negative
Physical Exam
-
General: Well Developed, Well Nourished, No Apparent Distress, Comfortable and Conversant (soft and slow speech)
HEENT: Normocephalic and Atraumatic
Respiratory: Clear to Auscultation and Non Labored Respirations; Negative Wheezes, Rhonchi or Accessory Resp Muscle Use
Cardiac: Regular Rhythm and S1/S2; Negative Murmur
GI: Soft, Nontender, Nondistended and Normal Bowel Sounds
Musculoskeletal: No Clubbing, No Cyanosis and No Edema
Neuro: Awake and Alert
Psych: Calm and Intact Judgement/Insight
Data Reviewed
-
Labs: Labs Reviewed by me
--- NOTE | 2025-02-03 10:30 | W.PN.CARDCBS ---
Addendum entered and electronically signed by Alex Tamayo MD 02/03/25 12:45:
79-year-old woman admitted February 01 with weakness, chest tightness and found to be in atrial fibrillation with rapid ventricular response, spontaneously converted to sinus rhythm after IV diltiazem. proBNP 313, TSH normal, undetectable troponin. In
retrospect patient has been having increasing episodes similar to this, 3 or 4 in the last month, and was severely symptomatic with current episode
PMH/PSH: CKD stage IIIb, depression, DVT and PE, Parkinson's disease, appendectomy, cholecystectomy, right total hip, arthroscopic procedures
Outpatient meds: Per summary screen, Not on beta-rigo or diltiazem
Current meds: Apixaban 5 mg twice daily, atorvastatin 20 mg daily, pantoprazole 40 mg a day, Sinemet, Lexapro, amiodarone 200 mg twice daily
150/80, pulse 63, respirate 12, afebrile, no distress head neck exam unremarkable, lungs are clear, regular rate and rhythm, abdomen benign, extremities without clubbing cyanosis or edema
Creatinine is 1.4 today, BUN is 24, potassium is 4.6
ECG today: Sinus rhythm, QTc is okay, normal ECG
Impression:
See below as per Mackenzie Roman. Reviewed in detail and agree, unless specifically noted in my plan.
Plan:
She appears stable without recurrent A-fib or chest pain. No evidence of heart failure on exam. Telemetry is unremarkable. She has received doses of amiodarone and seems to be tolerated well.
Okay for discharge from cardiac standpoint.
Outpatient cardiac follow-up arranged.
Original Note:
Today's Communication / Plan
-
Amiodarone 200 mg twice daily for 4 weeks then decrease to 200 mg daily
Eliquis 5 mg twice daily. Will need to follow outpatient renal function closely as borderline for lower dosing
Consider low-dose Norvasc, may need to allow for permissive hypertension
Consider outpatient ischemic evaluation
Outpatient cardiac follow-up arranged
Okay for discharge today from cardiac standpoint
Impression / Plan
-
PCP: Dorcas Sheldon
Senior Enterprise Architect: Sony Buckley
Impression:
Presented 02/01/2025 with generalized weakness, leg weakness and chest tightness
New diagnosis of atrial fibrillation with rapid ventricular response
Tricuspid regurgitation
Parkinson's disease
Hyperlipidemia
History of PE/DVT
Chronic anticoagulation on Eliquis
CKD stage IIIb
Depression
Echo 02/02/2025: Small LV with mild concentric LVH and hyperdynamic systolic LV function, EF 75 to 80%, dynamic mid ventricular cavity gradient, mild MAC, trace MR, mild with peak/mean gradients 23/11 mmHg, CLARK 1.5 cm�, no AR, normal right heart,
PAP 30 to 35 mmHg
Echo 09/19/2023: EF 58%, moderate TR. PAP 31 mmhg
Plan:
-Presented 02/01/2025 with generalized weakness, leg weakness and chest tightness
-New diagnosis of atrial fibrillation with rapid ventricular response, spontaneously converted to sinus rhythm after IV diltiazem in ED.
-remains in SR. amiodarone started this admission. plan for 200mg BID for 4 weeks upon DC then decrease to 200mg daily. No BB given baseline bradycardia
-continue eliquis for both history of recurrent DVT/PE and now afib. will need to follow Cr closely as she is borderline for decrease in eliquis dosing
-Echocardiogram with results as above
-Blood pressures are elevated, however was noted to be mildly orthostatic, so may need to allow degree of permissive hypertension. Could consider trial of low-dose Norvasc
-Chest tightness with negative troponin x 3. EKG in sinus rhythm without ischemic changes. CT of chest negative for PE. No additional chest tightness with conversion to sinus rhythm. Consider for outpatient ischemic evaluation, would need to be
with Lexiscan due to Parkinson's/physical limitations
-Will arrange for outpatient cardiology follow-up
-Okay for discharge to home today from cardiac standpoint
-Discussed with patient and at bedside
Progress Note - Senior Enterprise Architect
Subjective
Date of Service: February 03, 2025
No issues overnight
Objective
Labs:
02/02/25 06:20
02/03/25 07:06
Labs
Hgb 11.6 g/dL (12.0-16.0) L 02/02/25 06:20
Hct 35.0 % (37.0-47.0) L 02/02/25 06:20
Plt Count 187 10^3/uL (130-400) 02/02/25 06:20
PT 18.2 Sec (11.4-14.6) H 02/01/25 09:47
INR 1.49 02/01/25 09:47
Sodium 139 mmol/L (135-145) 02/03/25 07:06
Potassium 4.6 mmol/L (3.5-5.1) 02/03/25 07:06
BUN 24 mg/dl (7-17) H 02/03/25 07:06
Creatinine 1.4 mg/dL (0.6-1.0) H 02/03/25 07:06
Glucose 104 mg/dl (70-99) H 02/03/25 07:06
Troponins
02/01/25 02/01/25 02/01/25
09:47 12:43 21:46
Troponin I < 0.012 Cancelled 0.018
02/02/25
06:20
Troponin I 0.012
Vital Signs and I&O:
Vital Signs
Temp Pulse Resp BP Pulse Ox
99.1 F 63 12 150/80 99
02/03/25 07:25 02/03/25 09:18 02/03/25 07:25 02/03/25 09:18 02/03/25 07:25
Vital Signs
Temp Pulse Resp BP Pulse Ox
99.1 F 63 12 150/80 99
02/03/25 07:25 02/03/25 09:18 02/03/25 07:25 02/03/25 09:18 02/03/25 07:25
Intake & Output
02/01/25 02/02/25 02/03/25 02/04/25
07:59 07:59 07:59 07:59
Intake Total 240 / 240 450 / 450 300 / 300
Balance 240 / 240 450 / 450 300 / 300
Physical Exam
Physical Exam
GEN: No distress, awake, alert, oriented x3
HEENT: supple, anicteric, mmm, EOMI
LUNGS: CTA bilaterally, no wheezes/rales
CV: Reg, S1/S2, 1/6 syst LSB
ABD: soft, BS+, NT/ND
EXT: No cyanosis, clubbing, edema
NEURO: Gross non-focal
SKIN: Warm, pink, dry. No rash
[2025-02-03 11:30] VITALS: BP 154/86
--- NOTE | 2025-02-03 13:23 | W.DCSUMMARY ---
Discharge Summary
Discharge Data
Date of Admission: 02/01/25
Date of Discharge: 02/03/25
-
Pending Results: No
Hospital Course
Principal Diagnosis:
BL leg weakness, near syncope, likely related to Parkinson's.
New onset A fib
Resolved chest pain/discomfort
Chronic Diagnoses:�
h/o DVT/PE on Eliquis
Parkinson's disease
HLD, on Lipitor
CKD stage 3
Consultations:�
Cardiology
Procedures:�
None
Clinical course:�
This is a 79-year-old female, with past medical history as stated above, who presented with leg weakness and chest pain.
In the ED, she felt better and her chest discomfort resolved. She was noted to be in new onset A fib and was given Cardizem 5 mg IV which spontaneously converted her back to NSR.
Problem 1:
BL leg weakness, near syncope, likely related to Parkinson's.
She was seen by PT OT and was recommended home health following discharge.
Problem 2:
New onset A fib.
The patient spontaneously converted to NSR after IV Cardizem.
Her echo was largely unrevealing: EF 75-80%. Mild aortic stenosis, peak/mean gradient 23/11 mmHg, aortic valve area 1.5cm2. No aortic regurgitation.
Due to her slow heart rate in the 60-70s, her prior to admission metoprolol was discontinued.
She was started with amiodarone for rhythm control.
She was discharged with amiodarone 200 mg twice daily for 1 month, then de-escalate to 200 mg once daily after that.
She can continue with her prior to admission Eliquis.
Problem 3:
Resolved chest pain/discomfort.
Her Troponin was negative and EKG was unrevealing.
Per cardiology, she could consider an outpatient ischemic evaluation.
As for the rest of her medical problems, they were stable during her hospital stay.
Discharge Plan
-
Patient Disposition: Home with Home Care
Discharge Diagnosis/Procedures: Leg weakness, near syncope, likely related to Parkinson's;
new onset A fib (spontaneously converted to normal sinus rhythm after IV Cardizem);
Resolved chest pain/discomfort ;
h/o DVT/PE on Eliquis
Condition: Fair
Diet: As tolerated, Regular and Low Fat
Activity: As tolerated
Driving Restrictions: As prior to admission
Referrals:
Wanda Ching PA-C [Specified Professional Personl, Cardiology] - 03/11/25 10:00 am
Referral Note: You have cardiology follow-up with Wanda Ching PA-C on March 11 at 10 AM [address] [facility] If you are unable to make this appointment please call to [facility] [phone] to reschedule
Dorcas Sheldon MD [Family Provider, Internal Medicine] - in less than 1 week
Additional Discharge Medication Instructions: Take Amiodarone 200 mg twice daily for 4 weeks then decrease to 200 mg daily
Prescriptions:
New
amiodarone 200 mg Tablet
200 mg PO BID Qty: 90 0RF
Continued
coenzyme Q10 [Co Q-10] 10 MG capsule
1 tab PO QPM
calcium-vitamin D3-vitamin K 1 EACH tablet,chewable
1 ea PO DAILY
atorvastatin 20 mg Tablet
20 mg PO HS
omega-3 fatty acids Capsule
1,000 mg PO DAILY
acetaminophen [Pain Reliever ES(acetaminophn)] 500 mg Tablet
1,000 mg PO Q6H Qty: 0 0RF
Eliquis 5 mg Tablet
5 mg PO BID Qty: 0 0RF
multivitamin with folic acid [Tab-A-Michelle] 1 TABLET tablet
1 tab PO DAILY
omeprazole 40 mg Capsule,Delayed Release(Dr/Ec)
40 mg PO DAILY
ibandronate 150 mg Tablet
150 mg PO QMONTH
mupirocin 2 % Ointment
1 applic TOPICAL BID
carbidopa-levodopa 25-100 mg Tablet
1 tab PO QID
escitalopram oxalate 10 mg Tablet
10 mg PO DAILY
Discharge Orders:
Discharge Patient (As Directed); Ordered 02/03/25
Ordered By: Nayla Bright
Discharge Date and Time
Print Language: [id number]
== END 2025-02-03 14:05 | disposition home health service (06) | DRG 57 ==
LOC: 3 WEST ACU 14:06
PROVIDERS: ADMITTING PHYSICIAN Internal Medicine; EMERGENCY PHYSICIAN Emergency Medicine; FAMILY PHYSICIAN Internal Medicine; OTHER PHYSICIAN Internal Medicine Cardiovascular Disease
DX: G20.A1 Parkinson's disease without dyskinesia, without mention of fluctuations (principal); I48.92 Unspecified atrial flutter; I48.91 Unspecified atrial fibrillation; E78.00 Pure hypercholesterolemia, unspecified; N18.32 Chronic kidney disease, stage 3b; Z86.711 Personal history of pulmonary embolism; Z86.718 Personal history of other venous thrombosis and embolism; Z79.899 Other long term (current) drug therapy; Z79.01 Long term (current) use of anticoagulants
CPT/HCPCS: 71046; 71275; 80048; 80053; 83735; 83880; 84443; 84484; 85025; 85027; 85610; 93005; 93306; 96361; 96374; 97116; 97163; 97167; 99285; Q9967

== ENCOUNTER 2025-03-26 14:14 | Outpatient (RCR) | payer MEDICARE, SELFPAY | END 2025-03-26 23:59 | disposition home or self-care (01) | LOC: RPT 14:14 | PROVIDERS: ATTENDING PHYSICIAN Specialist; FAMILY PHYSICIAN Internal Medicine | DX: G20.A1 Parkinson's disease without dyskinesia, without mention of fluctuations (principal); Z73.6 Limitation of activities due to disability; R26.2 Difficulty in walking, not elsewhere classified; R26.89 Other abnormalities of gait and mobility | CPT/HCPCS: 97110; 97112; 97116; 97164; 97530 ==

== ENCOUNTER → 2025-04-14 10:19 | Outpatient (REF) | payer MEDICARE, SELFPAY | LOC: RAD 10:19 | PROVIDERS: ATTENDING PHYSICIAN Urology; FAMILY PHYSICIAN Internal Medicine | DX: N31.9 Neuromuscular dysfunction of bladder, unspecified (principal); N39.41 Urge incontinence | CPT/HCPCS: 76770; 76856 ==

== ENCOUNTER 2025-04-23 14:53 | Outpatient (RCR) | payer MEDICARE, SELFPAY | END 2025-04-23 23:59 | disposition home or self-care (01) | LOC: RPT 14:53 | PROVIDERS: ATTENDING PHYSICIAN Specialist; FAMILY PHYSICIAN Internal Medicine | DX: G20.A1 Parkinson's disease without dyskinesia, without mention of fluctuations (principal); Z73.6 Limitation of activities due to disability; R26.2 Difficulty in walking, not elsewhere classified; R26.89 Other abnormalities of gait and mobility | CPT/HCPCS: 97110; 97112; 97116 ==

== ENCOUNTER 2025-05-21 14:08 | Outpatient (RCR) | payer MEDICARE, SELFPAY | END 2025-05-25 10:25 | disposition home or self-care (01) | LOC: RPT 14:08 | PROVIDERS: ATTENDING PHYSICIAN Specialist; FAMILY PHYSICIAN Internal Medicine | DX: G20.A1 Parkinson's disease without dyskinesia, without mention of fluctuations (principal); Z73.6 Limitation of activities due to disability; R26.2 Difficulty in walking, not elsewhere classified; R26.89 Other abnormalities of gait and mobility | CPT/HCPCS: 97110; 97116 ==

== ENCOUNTER 2025-05-25 08:41 | Outpatient (RCR) | payer MEDICARE, SELFPAY | END 2025-05-25 23:59 | disposition home or self-care (01) | LOC: RPT 08:41 | PROVIDERS: ATTENDING PHYSICIAN Urology; FAMILY PHYSICIAN Internal Medicine | DX: N31.9 Neuromuscular dysfunction of bladder, unspecified (principal); N39.41 Urge incontinence; M62.89 Other specified disorders of muscle; Z73.6 Limitation of activities due to disability; R26.89 Other abnormalities of gait and mobility; G20.A1 Parkinson's disease without dyskinesia, without mention of fluctuations | CPT/HCPCS: 97161; 97530 ==

== ENCOUNTER 2025-06-26 08:36 | Outpatient (RCR) | payer MEDICARE, SELFPAY | END 2025-06-26 23:59 | disposition home or self-care (01) | LOC: RPT 08:36 | PROVIDERS: ATTENDING PHYSICIAN Urology; FAMILY PHYSICIAN Internal Medicine | DX: N31.9 Neuromuscular dysfunction of bladder, unspecified (principal); N39.41 Urge incontinence; M62.89 Other specified disorders of muscle; Z73.6 Limitation of activities due to disability; R26.89 Other abnormalities of gait and mobility; G20.A1 Parkinson's disease without dyskinesia, without mention of fluctuations | CPT/HCPCS: 97110; 97112; 97530 ==

== ENCOUNTER 2025-07-24 06:58 | Outpatient (RCR) | payer MEDICARE, SELFPAY | END 2025-07-24 23:59 | disposition home or self-care (01) | LOC: RPT 06:58 | PROVIDERS: ATTENDING PHYSICIAN Urology; FAMILY PHYSICIAN Internal Medicine | DX: N31.9 Neuromuscular dysfunction of bladder, unspecified (principal); N39.41 Urge incontinence; M62.89 Other specified disorders of muscle; Z73.6 Limitation of activities due to disability; R26.89 Other abnormalities of gait and mobility; G20.A1 Parkinson's disease without dyskinesia, without mention of fluctuations | CPT/HCPCS: 97110; 97112 ==

== ENCOUNTER 2025-07-31 10:40 | Outpatient (RCR) | payer MEDICARE, SELFPAY | END 2025-07-31 13:32 | disposition home or self-care (01) | LOC: RPT 10:40 | PROVIDERS: ATTENDING PHYSICIAN Urology; FAMILY PHYSICIAN Internal Medicine | DX: N31.9 Neuromuscular dysfunction of bladder, unspecified (principal); N39.41 Urge incontinence; M62.89 Other specified disorders of muscle; Z73.6 Limitation of activities due to disability; R26.89 Other abnormalities of gait and mobility; G20.A1 Parkinson's disease without dyskinesia, without mention of fluctuations | CPT/HCPCS: 97110; 97112 ==